=== PATIENT | male | born 1990 | race Caucasian/White ===

== ENCOUNTER 2016-06-15 23:41 | Emergency (ER) | payer OTHER ==
[~2016-06-15] VITALS: Ht 165.1 cm; Wt 83.9 kg
[~2016-06-15 23:41] MED LIST: AMOXICILLIN875 MG PO; MOTRIN800 MG PO; NORCO 5/3251 TABLET PO; PREDNISONE20 MG PO; PROAIR HFA8.5 GM IH; ZITHROMAX Z-PA250 MG PO
[2016-06-16 00:07] LABS: ADD MIUA? YES; BILIRUBIN NEGATIVE; BLOOD MODERATE; GLUCOSE (STRIP) NEGATIVE; KETONES NEGATIVE; LEUKOCYTES NEGATIVE; NITRITE NEGATIVE; PROTEIN (STRIP) 100; UROBILINOGEN 0.2 MG/DL (0.2-1.0)
[2016-06-16 00:09] LABS: COLOR RED ((YELLOW))
[2016-06-16 00:51] LABS: HEMATOCRIT 39.5 % (38.0-50.0); MCH 30.9 PG (29.0-34.0); MCHC 34.2 G/DL (30.0-36.0); MCV 90.4 FL (86-99); MEAN PLAT.VOLUME 9.7 uM^3 (9.0-12.4); PLATELET COUNT 239 K/uL (156-360); RBC DIS.WIDTH-CV 12.2 % (11.8-14.6); RBC DIS.WIDTH-SD 40.4 % (39-53); RED BLOOD COUNT 4.37 M/uL (4.00-5.50); WHITE BLOOD COUNT 8.3 K/uL (4.1-10.2)
[2016-06-16] MEDS ORDERED: PERCOCET 5/31 TABLET PO (00:54)
[2016-06-16] MEDS ORDERED: FLOMAX0.4 MG PO (00:54)
[2016-06-16] MEDS ORDERED: TORADOL10 MG PO (00:54)
[2016-06-16 01:00] LABS: RED BLOOD CELLS TNTC /HPF (0-5); UCUL ADDED? YES
[2016-06-16 01:02] LABS: CHLORIDE 105 mEq/L (99-109); SODIUM 142 mEq/L (136-147)
[2016-06-16 01:05] LABS: ANION GAP 7 MEQ/L (2-14)
[2016-06-16 01:08] LABS: GFR ESTIMATE (CALCULATED) > 59 mL/min/; UREA NITROGEN (BUN) 21 mg/dL (9-23)
[2016-06-16 01:10] LABS: CREATINE KINASE 141 IU/L (1-294)
[2016-06-16 01:19] VITALS: BP 127/70
[2016-06-16 01:31] LABS: GLUCOSE 88 mg/dL (70-99)
== END 2016-06-16 01:21 | disposition home or self-care (01) ==
LOC: EME 23:41
PROVIDERS: Physician Assistant
DX: N20.1 Calculus of ureter (principal); R31.9 Hematuria, unspecified; Z87.442 Personal history of urinary calculi; F17.200 Nicotine dependence, unspecified, uncomplicated
CPT/HCPCS: 74176; 80048; 81003; 82550; 85027; 87086; 99281; 99284

== ENCOUNTER 2016-11-04 10:41 | Emergency (ER) | payer OTHER ==
[~2016-11-04] VITALS: Ht 170.2 cm; Wt 81.2 kg
[~2016-11-04 10:41] MED LIST changes: +FLOMAX0.4 MG PO; +PERCOCET 5/31 TABLET PO; +TORADOL10 MG PO
[2016-11-04 11:43] LABS: HEMATOCRIT 43.2 % (38.0-50.0); MCH 30.6 PG (29.0-34.0); MCV 89.8 FL (86-99); MEAN PLAT.VOLUME 9.7 uM^3 (9.0-12.4); PLATELET COUNT 225 K/uL (156-360); RBC DIS.WIDTH-CV 12.1 % (11.8-14.6); RBC DIS.WIDTH-SD 40.1 % (39-53); RED BLOOD COUNT 4.81 M/uL (4.00-5.50); WHITE BLOOD COUNT 8.6 K/uL (4.1-10.2)
[2016-11-04 11:55] LABS: CHLORIDE 105 mEq/L (99-109); SODIUM 142 mEq/L (136-147)
[2016-11-04 11:57] LABS: GLUCOSE 95 mg/dL (70-99)
[2016-11-04 11:59] LABS: ANION GAP 10 MEQ/L (2-14)
[2016-11-04 12:01] LABS: GFR ESTIMATE (CALCULATED) > 59 mL/min/
[2016-11-04 12:02] LABS: UREA NITROGEN (BUN) 17 mg/dL (9-23)
[2016-11-04 12:23] LABS: ADD MIUA? YES; BILIRUBIN NEGATIVE; BLOOD LARGE; COLOR AMBER ((YELLOW)); GLUCOSE (STRIP) NEGATIVE; KETONES 5; LEUKOCYTES TRACE; NITRITE NEGATIVE; PROTEIN (STRIP) 100; SPECIFIC GRAVITY 1.039 (1.000-1.030)
[2016-11-04 12:44] LABS: BACTERIA 1+ /HPF; EPITHELIAL CELLS NONE SEEN /HPF; MUCUS 4+ /LPF; RED BLOOD CELLS TNTC /HPF (0-5); UCUL ADDED? YES; WHITE BLOOD CELLS 20-30 /HPF (0-5)
[2016-11-04] MEDS ORDERED: ZOFRAN ODT4 MG PO (13:10)
[2016-11-04] MEDS ORDERED: PERCOCET 5/31 TABLET PO (13:10)
[2016-11-04] MEDS ORDERED: FLOMAX0.4 MG PO (13:10)
[2016-11-04 13:33] VITALS: BP 113/72
== END 2016-11-04 13:36 | disposition home or self-care (01) ==
LOC: EME 10:41
DX: N20.0 Calculus of kidney (principal); R10.9 Unspecified abdominal pain; F17.200 Nicotine dependence, unspecified, uncomplicated
CPT/HCPCS: 74000; 80048; 81003; 85027; 87086; 99281; 99284; J1885

== ENCOUNTER 2017-04-21 21:59 | Emergency (ER) | payer OTHER ==
[~2017-04-21] VITALS: Ht 170.2 cm; Wt 84.2 kg
[~2017-04-21 21:59] MED LIST changes: +ZOFRAN ODT4 MG PO
[2017-04-21] MEDS ORDERED: DOXYCYCLINE MO100 MG PO (23:41)
[2017-04-21 23:56] VITALS: BP 143/89
== END 2017-04-21 23:57 | disposition home or self-care (01) ==
LOC: EME 21:59 → RME 21:59
PROC: 0991XZZ Drainage of Left External Ear, External Approach (ICD-10-PCS; principal; 2017-04-21)
DX: H60.10 Cellulitis of external ear, unspecified ear (principal); Z87.891 Personal history of nicotine dependence
CPT/HCPCS: 99281; 99283

== ENCOUNTER 2017-06-23 22:56 | Observation (INO) | payer OTHER ==
[~2017-06-23] VITALS: Ht 167.6 cm; Wt 84.1 kg
[~2017-06-23 22:56] MED LIST changes: +DOXYCYCLINE MO100 MG PO
[2017-06-23 23:31] LABS: HEMATOCRIT 43.5 % (38.0-50.0); HEMOGLOBIN 15.5 G/DL (12.5-16.6); MCH 31.4 PG (29.0-34.0); MCHC 35.6 G/DL (30.0-36.0); MCV 88.1 FL (86-99); PLATELET COUNT 218 K/uL (156-360); RBC DIS.WIDTH-CV 12.2 % (11.8-14.6); RBC DIS.WIDTH-SD 39.6 % (39-53); RED BLOOD COUNT 4.94 M/uL (4.00-5.50); WHITE BLOOD COUNT 15.8 K/uL (4.1-10.2)
[2017-06-23 23:42] LABS: CHLORIDE 105 mEq/L (99-109); POTASSIUM 4.3 mEq/L (3.7-5.4); SODIUM 143 mEq/L (136-147)
[2017-06-23 23:44] LABS: GLUCOSE 109 mg/dL (70-99)
[2017-06-23 23:48] LABS: GFR ESTIMATE (CALCULATED) > 59 mL/min/ (58.99-99999)
[2017-06-23 23:49] LABS: UREA NITROGEN (BUN) 17 mg/dL (9-23)
[2017-06-24 06:05] LABS: APPEARANCE CLEAR ((CLEAR)); BILIRUBIN NEGATIVE; BLOOD NEGATIVE; COLOR YELLOW ((YELLOW)); GLUCOSE (STRIP) NEGATIVE; KETONES NEGATIVE; LEUKOCYTES NEGATIVE; NITRITE NEGATIVE; PROTEIN (STRIP) NEGATIVE; SPECIFIC GRAVITY 1.059 (1.000-1.030); UCUL ADDED? NO; UROBILINOGEN 0.2 MG/DL (0.2-1.0)
[2017-06-24 13:38] VITALS: BP 116/64
[2017-06-24 15:39] VITALS: BP 116/61
[2017-06-24 19:29] VITALS: BP 103/62
[2017-06-25 00:16] VITALS: BP 105/61
[2017-06-25 06:30] LABS: HEMATOCRIT 41.7 % (38.0-50.0); HEMOGLOBIN 14.3 G/DL (12.5-16.6); MCH 30.8 PG (29.0-34.0); MCHC 34.3 G/DL (30.0-36.0); MCV 89.7 FL (86-99); PLATELET COUNT 190 K/uL (156-360); RBC DIS.WIDTH-CV 12.2 % (11.8-14.6); RED BLOOD COUNT 4.65 M/uL (4.00-5.50); WHITE BLOOD COUNT 6.3 K/uL (4.1-10.2)
[2017-06-25 06:55] LABS: CHLORIDE 107 MEQ/L (99-109); CREATININE 0.9 MG/DL (0.6-1.3); GFR ESTIMATE (CALCULATED) > 59 mL/min/ (58.99-99999); GLUCOSE 92 mg/dL (70-99); POTASSIUM 4.9 MEQ/L (3.7-5.4); SODIUM 140 MEQ/L (136-147); UREA NITROGEN (BUN) 16 mg/dL (9-23)
[2017-06-25 08:43] VITALS: BP 110/62
[2017-06-25 11:35] VITALS: BP 115/64
[2017-06-25] MEDS ORDERED: BENADRYL25 MG PO (13:18)
[2017-06-25] MEDS ORDERED: NICOTINE PATCH1 EAC2 TD (13:19)
== END 2017-06-25 14:41 | disposition home or self-care (01) ==
LOC: EXP 22:56 → EME 22:56 → EDOF 06-24 08:15 → 5WEST 06-24 08:15 → EDOF 06-24 08:15 → ENRESERV 06-24 08:17 → 5WEST 06-24 13:48
PROVIDERS: Internal Medicine
DX: K52.9 Noninfective gastroenteritis and colitis, unspecified (principal); R10.32 Left lower quadrant pain; R21 Rash and other nonspecific skin eruption; R51 Headache; F17.290 Nicotine dependence, other tobacco product, uncomplicated
CPT/HCPCS: 74177; 80048; 81003; 85027; 87493; 87506; 99281; 99285; G0378; J0780; J1200; J1885; J7120

== ENCOUNTER 2017-09-24 12:36 | Emergency (ER) | payer OTHER ==
[~2017-09-24] VITALS: Ht 170.2 cm; Wt 80.1 kg
[~2017-09-24 12:36] MED LIST changes: +BENADRYL25 MG PO; +NICOTINE PATCH1 EAC2 TD
[2017-09-24 16:25] VITALS: BP 132/85
== END 2017-09-24 16:26 | disposition home or self-care (01) ==
LOC: EME 12:36
DX: S00.03XA Contusion of scalp, initial encounter (principal); Y04.2XXA Assault by strike against or bumped into by another person, initial encounter; Y92.481 Parking lot as the place of occurrence of the external cause; Y07.02 Wife, perpetrator of maltreatment and neglect; F17.200 Nicotine dependence, unspecified, uncomplicated

== ENCOUNTER 2017-09-30 18:36 | Emergency (ER) | payer OTHER ==
[~2017-09-30] VITALS: Ht 167.6 cm; Wt 79.2 kg
[2017-09-30] MEDS ORDERED: AMOXICILLIN500 M1 PO (21:13)
[2017-09-30] MEDS ORDERED: MOTRIN600 MG PO (21:14)
[2017-09-30 21:53] VITALS: BP 132/92
== END 2017-09-30 21:53 | disposition home or self-care (01) ==
LOC: EME 18:36
DX: S09.21XA Traumatic rupture of right ear drum, initial encounter (principal); S09.8XXA Other specified injuries of head, initial encounter; W50.0XXA Accidental hit or strike by another person, initial encounter; J32.2 Chronic ethmoidal sinusitis; F17.200 Nicotine dependence, unspecified, uncomplicated
CPT/HCPCS: 70450; 99281; 99283